=== PATIENT | male | born 1970 | race African-American/Black ===

== ENCOUNTER 2022-02-20 03:15 | Observation (INO) | payer BC, SELFPAY ==
[2022-02-20] VITALS (9 sets, daily range): BP systolic 103–120; BP diastolic 55–79; PULSE 82–88; RESP 14–19; TEMP 35.2–36.6; O2SAT 97–100; BMI 29.0
--- NOTE | 2022-02-20 03:17 | DI.CT.S_ITS ---
PROCEDURE: CT STROKE INDICATIONS: stroke symptoms, speech, weakness TECHNIQUE: Noncontrast 4.5 mm thick angled axial sections acquired from the foramen magnum to the vertex, with coronal reformats. For radiation dose reduction, the following was used: automated exposure control, adjustment of mA and/or kV according to patient size. COMPARISON: None. FINDINGS: Image quality: Excellent. CSF spaces: Basal cisterns are patent. No extra-axial fluid collections. The ventricles are symmetric in size and shape. Brain: No intracranial bleeds or masses. There is mild cerebral volume loss for age, with resultant ventricular and sulcal prominence. There are mild periventricular and deep white matter chronic small vessel ischemic changes. There is intracranial internal carotid artery atherosclerosis. Skull and face: Calvarium and visualized facial bones appear intact, without suspicious lesions. Sinuses: Visualized sinuses and mastoids are clear. IMPRESSION: 1. No acute intracranial abnormalities. No significant discrepancy with the material handler 1st shift radiology preliminary report. This study fulfills neurological imaging criteria for inclusion or exclusion of acute stroke therapies based on available published neurological guidelines. Dictated by: Gregorio Mary M.D. on 02/20/2022 at 7:37 Approved by: Gregorio Mary M.D. on 02/20/2022 at 7:38
--- NOTE | 2022-02-20 03:18 | DI.CT.S_ITS ---
PROCEDURE: CT ANGIO HEAD AND NECK INDICATIONS: stroke symptoms, speech, weakness TECHNIQUE: After the administration of intravenous contrast, 1 mm thick sections acquired from the aortic arch through the [place] of [place]. Post-contrast 4.5 mm thick sections then re-acquired from the foramen magnum to the vertex. 3-dimensional dkhoutd-aezpfjjmz-oddhpdvbiv (MIP) and/or volume rendering reformats were acquired of the central intracranial vasculature and neck separately. For radiation dose reduction, the following was used: automated exposure control, adjustment of mA and/or kV according to patient size. COMPARISON: [facility], CT, CT STROKE, 02/20/2022, 3:26. FINDINGS: Image quality: Excellent. BRAIN: CSF spaces: Ventricles are normal in size and shape. Basal cisterns are patent. No extra-axial fluid collections. Brain: No midline shift. Mild cerebral volume loss. No intracranial bleeds or masses. Mild periventricular white matter chronic small vessel ischemic changes are noted. No abnormal intracranial enhancement. Skull and face: Calvarium and facial bones appear intact, without suspicious lesions. Orbits appear normal. Sinuses: There is maxillary sinus mucosal thickening and mucous retention cyst bilaterally. The mastoids are clear. HEAD CT ANGIOGRAPHY: Anterior circulation: Calcified plaques at the cavernous segment of the internal carotid arteries bilaterally, left greater than right. Intracranial internal carotid arteries are normal in size and flow. The flow within the paired anterior cerebral arteries is normal and symmetric. The flow within the middle cerebral arteries is normal and symmetric. The anterior communicating artery is seen. No aneurysms are seen. Posterior circulation: Visualized portions of the vertebral arteries demonstrate normal caliber, and join to form a normal appearing basilar artery. Flow within the posterior cerebral arteries is normal and symmetric. No aneurysms are seen. NECK CT ANGIOGRAPHY: Carotid system: There is a common trunk for the left common carotid artery and innominate artery. The origins of the common carotid arteries appear patent. The common carotid arteries demonstrate normal caliber and courses. The bifurcation regions are both widely patent with mild calcified plaques. The internal carotid arteries demonstrate normal calibers and courses. Posterior circulation: The origins of the vertebral arteries both appear widely patent. The more superior extracranial portions of both vertebral arteries also demonstrate normal courses and calibers. They join to form a normal appearing basilar artery. Soft tissues: Visualized neck soft tissues demonstrate no suspicious abnormalities. Left thyroid lobe is absent, presumably surgically removed. Bones: No suspicious bony lesions. Degenerative changes in cervical spine. Visualized cervical spine appears normally aligned. IMPRESSION: 1. No acute intracranial abnormalities. 2. Bilateral maxillary sinus disease. 3. No high-grade stenosis or occlusion in anterior or posterior circulations. 4. No high-grade stenosis or occlusion in cervical carotid arteries or vertebral arteries bilaterally. No significant discrepancy with the operation shift supervisor radiology preliminary report. Any quantitative measurements of stenosis were performed using NASCET criteria. Dictated by: Gregorio Mary M.D. on 02/20/2022 at 7:39 Approved by: Gregoiro Mary M.D. on 02/20/2022 at 9:03
--- NOTE | 2022-02-20 03:18 | ED.NEUROSD ---
HPI - Neuro Symptoms/Deficit General Chief Complaint: Neuro Symptoms/Deficit Stated Complaint: stroke symptoms 30 mins Time Seen by Provider: 02/20/22 03:18 History of Present Illness HPI Narrative: 51-year-old male nonsmoker with extensive medical history including prior CO, AFib on Eliquis, diabetes presents by EMS for evaluation of stroke-like symptoms this morning. His last known normal was 12 30 and he awoke at about 2:00 a.m. with confusion, slurring of words, difficulty finding words and weakness. states that she thinks the left side of his face was a bit droopy. There is some questionable description of right-sided extremity weakness. Symptoms lasted about 30 minutes and had resolved prior to his arrival. He was diverted here by [facility] as Yolamarija miranda is on full diver. Though he technically no longer meets code stroke he is taken directly to the CT for evaluation. He denies any recent trauma or injury. He has no headache or blurred vision. He denies any chest pain or shortness of breath. Related Data Allergies Allergy/AdvReac Type Severity Reaction Status Date / Time metformin Allergy Rash Verified 02/20/22 03:40 lisinopril AdvReac Cough Verified 02/20/22 03:41 Review of Systems Review of Systems Narrative: GENERAL: Denies chills, fatigue, malaise, fever, sweats. HEENT: Denies sinus pain, ear pain, sore throat, difficulty swallowing, dizziness. RESPIRATORY: Denies dyspnea, cough, wheezing, hemoptysis, sputum. CARDIOVASCULAR: Denies chest pain, palpitations, orthopnea, edema, GASTROINTESTINAL: Denies nausea, vomiting, abdominal pain, diarrhea, constipation, melena. : Denies dysuria, frequency, incontinence, hematuria, urinary retention. MUSCULOSKELETAL: denies weakness, joint pain, or bony pain SKIN: Denies rash, skin lesions, or other NEUROLOGIC: See HPI PSYCHIATRIC: No concerning psychosocial issues. 12 point review of systems is negative except for those stated above Patient History Social History Smoking Status: Current every day smoker Exam Narrative Exam Narrative: GENERAL: [51] year old patient appears stated age. Well-developed patient, in mild distress. HEAD: Atraumatic. Normocephalic. EYES: Pupils equal round and reactive. Extraocular motions intact. No scleral icterus. No injection or drainage. ENT: Nose without bleeding, purulent drainage. Throat without erythema, tonsillar hypertrophy or exudate. Airway patent. NECK: Trachea midline. Non tender CARDIOVASCULAR: Regular rate and rhythm without murmurs, gallops, or rubs. RESPIRATORY: Clear to auscultation. Breath sounds equal bilaterally. No wheezes, rales, or rhonchi. GASTROINTESTINAL: Abdomen soft, non-tender, nondistended. EXTREMITIES: No edema or joint tenderness. BACK: Nontender without deformity or crepitance. No flank tenderness. NEURO: AOx3. SKIN: No rash or erythema of visible areas NIH Stroke Scale 1a. LOC: Patient is alert and keenly responsive (0) 1b. LOC Questions: Patient answers both LOC questions accurately (0) 1c. LOC Commands: Patient performs both tasks correctly (0) 2. Best Gaze: Normal (0) 3. Visual: No visual loss (0) 4. Facial palsy: Normal symmetrical movements (0) 5. Motor arm: No drift (0) 6. Motor leg: No drift (0) 7. Limb ataxia: Absent (0) 8. Sensory: Normal (0) 9. Best language: No aphasia; normal (0) 10. Dysarthria: Normal (0) 11. Extinction and inattention: No abnormality (0) NIHSS: 0 Initial Vital Signs Initial Vital Signs: Vital Signs Temperature 97.5 F L 02/20/22 03:15 Pulse Rate 82 02/20/22 03:15 Respiratory Rate 18 02/20/22 03:15 Blood Pressure 117/79 02/20/22 03:15 Pulse Oximetry 98 02/20/22 03:15 Oxygen Delivery Method 02/20/22 03:15 Course Orders Ordered: ED Orders 02/20/22 03:17 CT Stroke Stat Urine Drug Screen, Rapid Stat EKG-12 Lead Stat 02/20/22 03:18 CT angio head and neck Stat 02/20/22 03:19 Complete Blood Count AUTO DIFF Stat Comprehensive Metabolic Panel Stat Prothrombin Time INR Stat Troponin & CK Cardiac Panel Stat 02/20/22 03:45 COVID19 -Nasal RAPID/Pre-Proc Stat Sodium Chloride (Normal Saline 0.9%) 1,000 mls @ 150 mls/hr IV CONT BIANCA Last Admin: 02/20/22 03:59 Dose: 150 mls/hr Documented By: OW Vital Signs Vital signs: Vital Signs - 8 hr 02/20/22 03:15 Temperature 97.5 F L Pulse Rate 82 Respiratory Rate 18 Blood Pressure 117/79 Pulse Oximetry 98 Oxygen Delivery Method Room Air MDM - Neuro Symptoms/Deficit Lab Data Result diagrams: 02/20/22 03:19 02/20/22 03:19 Labs: Lab Results 02/20/22 02/20/22 02/20/22 Range/Units 03:19 03:19 03:19 WBC 8.1 (4.5-11.0) X10^3/uL RBC 4.36 L (4.5-5.9) X10^6/uL Hgb 13.9 (13.5-17.5) g/dL Hct 40.7 L (41-53) % MCV 93.1 (80-100) fL MCH 31.7 (26-34) PG MCHC 34.1 (30-36) % RDW 14.0 (11.6-14.8) % Plt Count 237 (150-400) X10^3/uL Neut % (Auto) 58.8 (50-75) % Lymph % (Auto) 29.2 (25-40) % [place] % (Auto) 8.0 (3-14) % Eos % (Auto) 3.2 (2-4) % Baso % (Auto) 0.8 (0-2) % Neut # (Auto) 4800 (0979-2269) /uL Lymph # (Auto) 2400 (2601-0000) /uL [place] # (Auto) 600 (0-900) /uL Eos # (Auto) 300 (0-450) /uL Baso # (Auto) 100 (0-100) /uL PT 15.1 H (10.1-12.7) SECONDS INR 1.3 (0.9-1.3) Sodium 134 L (137-145) mmol/L Potassium 3.8 (3.4-5.1) mmol/L Chloride 101 (98-107) mmol/L Carbon Dioxide 22 (22-32) mmol/L BUN 17 (9-20) mg/dL Creatinine 1.28 H (0.66-1.25) mg/dL Estimated GFR > 60 (>60) mL/min BUN/Creatinine Ratio 13.3 (6-22) Glucose 164 H (70-100) mg/dL Calcium 9.4 (8.4-10.2) mg/dL Total Bilirubin 0.4 (0.2-1.3) mg/dL AST 26 (17-59) IU/L ALT 23 (<50) IU/L Alkaline Phosphatase 59 (38-126) U/L Total Creatine Kinase 152 (55-170) U/L CK-MB (CK-2) 1.30 (<2.37) ng/mL CK-MB (CK-2) Rel Index 0.9 L (1.5-5.0) % Troponin I < 0.012 (0.01-0.034) ng/mL Total Protein 7.5 (6.3-8.2) g/dL Albumin 3.9 (3.5-5.0) g/dL Globulin 3.6 (1.7-4.1) g/dL Albumin/Globulin Ratio 1.1 (1.0-2.8) SARS-CoV-2 (PCR) (Negative) 02/20/22 Range/Units 03:45 WBC (4.5-11.0) X10^3/uL RBC (4.5-5.9) X10^6/uL Hgb (13.5-17.5) g/dL Hct (41-53) % MCV (80-100) fL MCH (26-34) PG MCHC (30-36) % RDW (11.6-14.8) % Plt Count (150-400) X10^3/uL Neut % (Auto) (50-75) % Lymph % (Auto) (25-40) % [place] % (Auto) (3-14) % Eos % (Auto) (2-4) % Baso % (Auto) (0-2) % Neut # (Auto) (1923-4708) /uL Lymph # (Auto) (4692-0260) /uL [place] # (Auto) (0-900) /uL Eos # (Auto) (0-450) /uL Baso # (Auto) (0-100) /uL PT (10.1-12.7) SECONDS INR (0.9-1.3) Sodium (137-145) mmol/L Potassium (3.4-5.1) mmol/L Chloride (98-107) mmol/L Carbon Dioxide (22-32) mmol/L BUN (9-20) mg/dL Creatinine (0.66-1.25) mg/dL Estimated GFR (>60) mL/min BUN/Creatinine Ratio (6-22) Glucose (70-100) mg/dL Calcium (8.4-10.2) mg/dL Total Bilirubin (0.2-1.3) mg/dL AST (17-59) IU/L ALT (<50) IU/L Alkaline Phosphatase (38-126) U/L Total Creatine Kinase (55-170) U/L CK-MB (CK-2) (<2.37) ng/mL CK-MB (CK-2) Rel Index (1.5-5.0) % Troponin I (0.01-0.034) ng/mL Total Protein (6.3-8.2) g/dL Albumin (3.5-5.0) g/dL Globulin (1.7-4.1) g/dL Albumin/Globulin Ratio (1.0-2.8) SARS-CoV-2 (PCR) Negative (Negative) Point of Care Testing Glucose POC [address] scan - head: Radiologist's Impression: No definite acute intracranial CT abnormality CTA - brain/neck: Radiologist's Impression: [address] [address] XRay Report Signed Patient: Zoie Bailon MR#: [id number] : 06/05/1973 Acct:[id number] Age/Sex: 48 / F Date of Service: 02/19/22 Loc: ED Accession Number: [id number] ?? Procedure: XR elbow LT min 3V Ordering Provider: Oscar Burrell D.O. PROCEDURE:? XR ELBOW LT MIN 3V ? INDICATIONS:? fall with wrist injury ? TECHNIQUE:? 3 views of the elbow were acquired.? ? COMPARISON:? None. ? FINDINGS:? ? Bones:? No fractures or dislocations.? No suspicious bony lesions.? ? Soft tissues:? No elbow joint effusion.? No suspicious soft tissue calcifications.? ? ? IMPRESSION:? ? 1. No fracture or dislocation. ? ? Dictated by: Mundo Keen M.D. on 02/19/2022 at 22:37 ? ? Approved by: Mundo Keen M.D. on 02/19/2022 at 22:38 ? MDM Narrative Medical decision making narrative: Patient went to bed in his normal state of health and was awoken at about 2:00 a.m. with a discomfort in his neck accompanied by neurologic symptoms including confusion, difficulty finding words, slurred speech and left-sided facial weakness with the possibility one-sided lower extremity weakness, his story is a bit vague. Imaging is unremarkable and NIH stroke scale department is 0. Patient requires hospitalization for further evaluation and characterization of his symptoms including MRI and likely echocardiogram. Patient understands and agrees with the diagnosis and plan, hospitalist happy to accept Discharge Plan Departure Patient Disposition: Admitted as Observation Clinical Impression: Transient cerebral ischemia Admit Date/Time: 02/20/22 04:15
[2022-02-20 03:29] LABS: Add Manual Diff / Slide Review NO; Basophils Absolute Auto 100 /uL (0-100); Basophils Percent Auto 0.8 % (0-2); Eosinophils Absolute Auto 300 /uL (0-450); Eosinophils Percent Auto 3.2 % (2-4); Hematocrit 40.7 % (41-53); Hemoglobin 13.9 g/dL (13.5-17.5); Lymphocytes Absolute Auto 2400 /uL (1100-4500); Lymphocytes Percent Auto 29.2 % (25-40); Mean Corpuscular HGB Conc 34.1 % (30-36); Mean Corpuscular Hemoglobin 31.7 PG (26-34); Mean Corpuscular Volume 93.1 fL (80-100); Monocytes Absolute Auto 600 /uL (0-900); Neutrophils Absolute Auto 4800 /uL (1500-7000); Neutrophils Percent Auto 58.8 % (50-75); Platelet Count 237 X10^3/uL (150-400); Red Blood Cell Count 4.36 X10^6/uL (4.5-5.9); White Blood Cell Count 8.1 X10^3/uL (4.5-11.0)
[2022-02-20 03:38] LABS: INR 1.3 (0.9-1.3); Prothrombin Time 15.1 SECONDS (10.1-12.7)
[2022-02-20 03:43] LABS: Alanine Aminotransferase 23 IU/L (<50); Albumin 3.9 g/dL (3.5-5.0); Albumin Globulin Ratio 1.1 (1.0-2.8); Alkaline Phosphatase 59 U/L (38-126); Aspartate Aminotransferase 26 IU/L (17-59); BUN Creatinine Ratio 13.3 (6-22); Bilirubin Total 0.4 mg/dL (0.2-1.3); Blood Urea Nitrogen 17 mg/dL (9-20); Calcium 9.4 mg/dL (8.4-10.2); Carbon Dioxide 22 mmol/L (22-32); Chloride 101 mmol/L (98-107); Creatine Kinase 152 U/L (55-170); Estimated Glomerular Filt Rate > 60 mL/min (>60); Globulin 3.6 g/dL (1.7-4.1); Glucose 164 mg/dL (70-100); HEMOLYSIS < 15 (0-50); Potassium 3.8 mmol/L (3.4-5.1); Sodium 134 mmol/L (137-145); Total Protein 7.5 g/dL (6.3-8.2)
[2022-02-20 03:55] LABS: Troponin I < 0.012 ng/mL (0.01-0.034)
[2022-02-20 03:58] LABS: CKMB % Relative Index 0.9 % (1.5-5.0)
[2022-02-20] MEDS: SODIUM CHLORIDE 0.9% 1,000 ML 150 ML IV (03:59)
[2022-02-20 04:01] LABS: COVID19 -Nasal RAPID Negative (Negative)
--- NOTE | 2022-02-20 04:42 | DI.MRI.S_ITS ---
PROCEDURE: MR HEAD/BRAIN WO CON INDICATIONS: TIA TECHNIQUE: Noncontrast axial T1 spin echo, axial T2 fast spin echo, sagittal and axial FLAIR, coronal T2 fast spin echo, axial gradient echo, axial diffusion and ADC through the brain. COMPARISON: None. FINDINGS: Image quality: Excellent. CSF Spaces: Basal cisterns are patent. No extra-axial fluid collections. Ventricles are normal in size and shape. Brain: No intracranial masses or hemorrhage. Cee/white matter interface is normal. Brainstem appears normal. Mild diffuse cerebral volume loss is present. Minimal patchy high FLAIR signal within the periventricular and subcortical white matter is present. Diffusion-weighted images demonstrate no acute ischemic insult. No chronic ischemic insults. Normal intravascular flow voids are present. Skull and face: Calvarium has normal marrow signal. Orbits appear normal. Sinuses: There is mild mucosal thickening within the bilateral maxillary, frontal, ethmoid, and sphenoid sinuses. Sinuses and mastoids are otherwise clear. IMPRESSION: 1. No acute process. No recent infarct. 2. Mild volume loss. Minimal small vessel ischemic disease. Dictated by: Sita Brar M.D. on 02/20/2022 at 8:52 Approved by: Sita Brar M.D. on 02/20/2022 at 8:53
--- NOTE | 2022-02-20 04:45 | DI.ECHO.S_ITS ---
[facility]---------+ [facility] +---------+ : : [address] [place] : : : : [id number] : : : : Phone: [phone]+ Echocardiogram Report + + :Name: DAIJA GENTILE Study Date: 02/20/2022 Height: 70 in : :[facility] ReadingLocation: Weight: 202 lb : : Gender: Male BSA: 2.1 m2 : :: 1970 Age: 51 yrs BP: 112/65 mmHg: :Reason For Study: TIA : :Ordering Physician: MASTER, : :DON Performed By: Alejandro Parker : :Referring: DON THAO : + + Interpretation Summary The left ventricle is normal in size. Left ventricular systolic function is normal. The ejection fraction is estimated to be 60-65%. There are no focal wall motion abnormalities. Diastolic parameters suggest a relaxation abnormality of the left ventricle, consistent with probable normal filling pressures. The right ventricle is normal in size and function. Pulmonary artery pressures cannot be estimated because of the lack of a measurable TR jet velocity. Both atria are normal in size. The interatrial septum grossly appears intact with no obvious evidence for an atrial septal defect. Injection of contrast documented no interatrial shunt. The aortic root is normal size. A bicuspid aortic valve cannot be excluded. There is mild aortic valve sclerosis. There is no aortic stenosis. Procedure: A two-dimensional transthoracic echocardiogram with color flow and Doppler was performed. The study quality was technically adequate. There is no prior echocardiogram noted for this patient. A saline contrast injection was performed to assess for cardiac shunting. The patient was in normal sinus rhythm during the exam. Left Ventricle: The left ventricle is normal in size. Left ventricular wall thickness is mildly increased. Left ventricular systolic function is normal. The ejection fraction is estimated to be 60-65%. There are no focal wall motion abnormalities. Diastolic parameters suggest a relaxation abnormality of the left ventricle, consistent with probable normal filling pressures. Right Ventricle: The right ventricle is normal in size and function. Atria: Both atria are normal in size. The interatrial septum grossly appears intact with no obvious evidence for an atrial septal defect. Injection of contrast documented no interatrial shunt. Mitral Valve: The mitral valve is normal in structure and function. There is trace mitral regurgitation. Aortic Valve: There is mild aortic valve sclerosis. A bicuspid aortic valve cannot be excluded. There is no aortic stenosis. No aortic regurgitation is present. Tricuspid Valve: The tricuspid valve is normal in structure and function. No tricuspid regurgitation. Pulmonary artery pressures cannot be estimated because of the lack of a measurable TR jet velocity. Pulmonic Valve: The pulmonic valve is not well seen, but is grossly normal. There is no pulmonic valvular regurgitation. There is no significant valvular heart disease. Great Vessels: The aortic root is normal size. The dimensions of the ascending aorta are normal. The IVC is of normal diameter and collapses greater than 50% with a sniff. This suggests a low right atrial pressure of 3 mm Hg. Pericardium/ Pleura There is no pericardial effusion. There is no pleural effusion. MMode/2D Measurements & Calculations LVIDd: 3.6 cm LVOT diam: 2.2 cm LVIDs: 2.5 cm Ao root diam: 2.9 cm FS: 29.6 % asc Aorta Diam: 3.0 cm IVSd: 1.3 cm LVPWd: 1.4 cm LV pacheco. diameter/BSA (cm/m^2): 1.7 LV sys. diameter/BSA (cm/m^2): 1.2 LA A2 area: 16.7 cm2 RA long axis: 5.4 cm LA A4 area: 16.6 cm2 RA area: 11.7 cm2 LA length (vol): 5.5 cm RA vol: 21.7 ml LA vol: 42.7 ml RA : 10.3 ml/m2 LA vol index: 20.4 ml/m2 TAPSE: 2.0 cm Doppler Measurements & Calculations Ao V2 max: 157.7 cm/sec LVOT Max Isidro: 104.6 cm/sec Ao V2 mean: 116.3 cm/sec LV V1 max P.4 mmHg Ao max P.9 mmHg LV V1 VTI: 18.4 cm Ao mean P.9 mmHg KATIE(I,D): 2.7 cm2 Ao V2 VTI: 26.6 cm KATIE(V,D): 2.6 cm2 sev ratio: 0.69 KATIE indexed to BSA (cm^2/m^2): 1.3 MV E max isidro: 64.0 cm/sec SV(LVOT): 72.9 ml MV A max isidro: 82.8 cm/sec MV E/A: 0.77 Med Peak E' Isidro: 7.0 cm/sec E/E' med: 9.1 Lat Peak E' Isidro: 7.1 cm/sec E/E' lat: 9.0 E/e' average: 9.1 MV dec time: 0.30 sec Reading Physician:01:22 PM
--- NOTE | 2022-02-20 04:59 | P.HP_ITS ---
History of Present Illness History of Present Illness Chief complaint: stroke symptoms 30 mins Narrative: Daljit Diaz is a 51-year-old male with a history of prior VT stent x1, paroxysmal AFib on Eliquis, type 2 diabetes on Victoza/Jardiance, depression, ischemic cardiomyopathy, coronary artery disease, hypertension, hyperlipidemia, severe GERD, overweight, daily tobacco and alcohol use who presented to the ED for reported stroke-like symptoms this morning.? His last known normal was 1230am when he went to bed awoke at about 2:00 a.m. with confusion, slurring of words, word-finding difficulty, and weakness. Patients reported possible left side facial droop and right-sided extremity weakness.? Symptoms lasted about 30 minutes and had resolved at home prior to EMS arrival to their home, and were not present on admittance to the ED.?He had been diverted to [place] by [facility] as [facility] was on diversion. Upon arrival he did not meet code stroke criteria. He denies any recent trauma, injury, headache, blurred vision, chest pain, shortness of breath, uri illness or symptoms, difficulty with balance or coordination, difficulty swallowing, abdominal pain, nausea, vomiting, diarrhea, fever, body aches, chills, urinary symptoms, bowel symptoms, or history of stroke or TIA. Patient does report that he has a significant history for severe GERD and frequently suffers from a type of burning radiating down epigastric pain midsternal, that frequently wakes him at night. He has been offered surgical intervention for esophageal sphincter dysfunction, he continues to manage with medication but notes that he has missed his medication frequently in the past 3 weeks he also had a large meal approximately 8:00 p.m. last night of collar greens with hot sauce, ribs and forgot to take his medication prior to eating. The patient smokes a ppd x 13 years and drinks 3-4 coores beers daily. The patient had been on Plavix and Eliquis, his picture painter stopped the Plavix approximately 2 months ago and doubled his losartan dose from 50 mg to 100 mg daily. Patient states that his atrial fibrillation presents with symptomatic lightheadedness slurred speech confusion, and weakness frequently. He had a stress test approximately 3 weeks ago, he notes his last echo was over a year ago. His picture painter is at [facility]. Patient's vital signs have remained stable upon admit temp 97.5?, BP 117/79, HR 82, R 18, O2 saturation 98% on room air. Patient's CBC is predominantly unr emarkable, CMP demonstrates a sodium 134, creatinine 1.28 glucose 164, PT is 15.1 but INR is normal at 1.3, initial troponin is negative, NIH score:0 head neck CTA was negative for any acute processes, brain CT negative for any acute intracranial processes. EKG I personally reviewed normal sinus rhythm with a rate of 84, nonspecific ST/T-wave abnormalities, prolonged QT 412. No comparison labs, diagnostics or EKG available in chart. Patient is resting comfortably in the room, although he continues to have GERD symptoms of midsternal radiating burning pain. Patient remains asymptomatic at this time. Patient admitted for TIA stroke rule out. Patient History Medical History (Updated 02/20/22 @ 06:06 by MAXIMILIAN Gayle-CONRADO) Alcohol use CAD (coronary artery disease), sun'aq coronary artery Chest pain due to GERD Essential hypertension 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 coronary artery disease Hypertriglyceridemia Ischemic cardiomyopathy Paroxysmal A-fib Tobacco abuse Type 2 diabetes mellitus Surgical History (Updated 02/20/22 @ 06:06 by MAXIMILIAN Gayle-CONRADO) History of coronary artery stent placement Family & Social History Family History Mother Seizure disorder Cancer Father Hypertension Diabetes mellitus Congestive heart failure Social History: household members ,children, is a long term care social worker Prior Living Arrangements House Safety & Behavioral: Feels Safe in Current Yes Environment Been Physically Hurt or No Threatened By a Person Tobacco & Substance use: Smoking Status Current every day smoker x 13 years Smoking packs per day 1 alcohol intake current alcohol intake frequency 3 or more drinks per day Substance Use Type does not use Meds Home Medications and Allergies Home Medications Medication Instructions Recorded Confirmed Type apixaban 5 mg tablet (Eliquis) 5 mg PO BID 02/20/22 02/20/22 History atorvastatin 80 mg tablet 80 mg PO DAILY 02/20/22 02/20/22 History carvedilol 25 mg tablet 12.5 mg PO BID 02/20/22 02/20/22 History empagliflozin 25 mg tablet 25 mg PO DAILY 02/20/22 02/20/22 History escitalopram oxalate 10 mg tablet 10 mg PO DAILY 02/20/22 02/20/22 History ezetimibe 10 mg tablet 10 mg PO DAILY 02/20/22 02/20/22 History fluticasone propionate 50 1 spray intranasal DAILY PRN 02/20/22 02/20/22 History mcg/actuation nasal Allergy Symptoms spray,suspension liraglutide 0.6 mg/0.1 mL (18 mg/3 1.8 mg SUBCUT DAILY 02/20/22 02/20/22 History mL) subcutaneous pen injector (Victoza 2-Molina) losartan 50 mg tablet 100 mg PO DAILY 02/20/22 02/20/22 History nitroglycerin 0.4 mg sublingual 0.4 mg sublingual Q5-15M PRN Chest 02/20/22 02/20/22 History tablet Pain omeprazole 20 mg tablet,delayed 20 mg PO DAILY 02/20/22 02/20/22 History release spironolactone 25 mg tablet 12.5 mg PO DAILY 02/20/22 02/20/22 History trazodone 50 mg tablet 50 mg PO BID 02/20/22 02/20/22 History Allergies Allergy/AdvReac Type Severity Reaction Status Date / Time metformin Allergy Rash Verified 02/20/22 03:40 lisinopril AdvReac Cough Verified 02/20/22 03:41 Review of Systems Review of Systems Narrative: All 12 point systems reviewed with the patient and are negative except otherwise documented. Exam Vital Signs (past 8 hours): - 02/20/22 03:15 02/20/22 04:12 02/20/22 04:30 Temperature 97.5 F L Pulse Rate 82 84 84 Respiratory Rate 18 14 14 Blood Pressure 117/79 108/67 103/67 Pulse Oximetry 98 97 97 Oxygen Delivery Method Room Air Room Air Room Air 02/20/22 04:58 Temperature 95.4 F L Pulse Rate 85 Respiratory Rate 19 Blood Pressure 112/65 Pulse Oximetry 99 Oxygen Delivery Method Oxygen Delivery Method Room Air Narrative Exam Narrative: General: Patient is a well-developed, well-nourished delightful 51 yr old male in no distress at this time. HEENT: Normocephalic, atraumatic, extraocular muscles intact, oral pharynx is clear and mucous membranes are moist. Neck is supple and symmetric, trachea is midline, no adenopathy, no thyroid enlargement, nontender, no masses palpated. Negative for JVD Chest: Normal AP diameter and contour without kyphoscoliosis, no nasal flaring, retractions, or tachypneic labored Lungs: Auscultation of all lung hancock are clear without adventitious sounds, wheezes, rhonchi, or rales. Cardio: regular rate and rhythm without murmur, rubs, or gallops, no carotid bruit, no cardiac pulsations present. Abdomen: Soft nontender, negative for organomegaly, or masses. Bowel sounds are present in all 4 quadrants without guarding or rebound, no CVA tenderness. Musculoskeletal: Muscle strength and tone are equal within normal limits, no deformity, crepitus, effusions, cyanosis, clubbing or edema present. Full range of motion intact radial and pedal pulses are normal. Skin: Warm dry and intact without rashes, ulcerations or petechiae. Neuro: Alert and orientated x3, strength is +5/5 in all extremities, sensation to touch intact, no gross deficits noted of cranial nerves.NIH:0 Psych: Patient has a well-kept appearance, appropriate affect, mental status attitude thought context and judgment are appropriate for age. Objective Labs Result Diagrams: 02/20/22 03:19 02/20/22 03:19 Labs: Laboratory Results - last 24 hr 02/20/22 02/20/22 02/20/22 03:19 03:19 03:19 WBC 8.1 RBC 4.36 L Hgb 13.9 Hct 40.7 L MCV 93.1 MCH 31.7 MCHC 34.1 RDW 14.0 Plt Count 237 Neut % (Auto) 58.8 Lymph % (Auto) 29.2 [place] % (Auto) 8.0 Eos % (Auto) 3.2 Baso % (Auto) 0.8 Neut # (Auto) 4800 Lymph # (Auto) 2400 [place] # (Auto) 600 Eos # (Auto) 300 Baso # (Auto) 100 PT 15.1 H INR 1.3 Sodium 134 L Potassium 3.8 Chloride 101 Carbon Dioxide 22 BUN 17 Creatinine 1.28 H Estimated GFR > 60 BUN/Creatinine Ratio 13.3 Glucose 164 H Calcium 9.4 Total Bilirubin 0.4 AST 26 ALT 23 Alkaline Phosphatase 59 Total Creatine Kinase 152 CK-MB (CK-2) 1.30 CK-MB (CK-2) Rel Index 0.9 L Troponin I < 0.012 Total Protein 7.5 Albumin 3.9 Globulin 3.6 Albumin/Globulin Ratio 1.1 SARS-CoV-2 (PCR) 02/20/22 03:45 WBC RBC Hgb Hct MCV MCH MCHC RDW Plt Count Neut % (Auto) Lymph % (Auto) [place] % (Auto) Eos % (Auto) Baso % (Auto) Neut # (Auto) Lymph # (Auto) [place] # (Auto) Eos # (Auto) Baso # (Auto) PT INR Sodium Potassium Chloride Carbon Dioxide BUN Creatinine Estimated GFR BUN/Creatinine Ratio Glucose Calcium Total Bilirubin AST ALT Alkaline Phosphatase Total Creatine Kinase CK-MB (CK-2) CK-MB (CK-2) Rel Index Troponin I Total Protein Albumin Globulin Albumin/Globulin Ratio SARS-CoV-2 (PCR) Negative Assessment & Plan Assessment & Plan narrative: Daljit Diaz is a 51-year-old male with a history of prior VT stent x1, paroxysmal AFib on Eliquis, type 2 diabetes on Victoza, coronary artery disease, ischemic cardiomyopathy, hypertension, hyperlipidemia, severe GERD, overweight, daily tobacco and alcohol use who presented to the ED for reported stroke-like symptoms, and admitted for TIA stroke rule out. 1. TIA (slurred speech, word-finding difficulty, weakness), acute, present on admission-Resolved -suspect true TIA, with exacerbation from atrial fibrillation and GERD. Patient's risk factors include , daily tobacco use, alcohol intake, history of VT with stent placement, ischemic cardiomyopathy, hypertension, hyperlipidemia, type 2 diabetes, atrial fibrillation, coronary artery disease, and over weight. -MRI /Echo ordered -Continue eliquis, Cardiology recently stopped Plavix will not restart unless MRI is positive for stroke. -continue patient's Lipitor and Zetia -ordered lipid panel, BNP -providing counseling regarding tobacco cessation, and reducing alcohol intake. -PT/OT evaluation 2. GERD, acute exacerbation, present on admission -patient notes that he has missed medication dosages frequently over the past 3 weeks. -Is followed by a GI- and has had a EGD & Colon within the past year. -order GI cocktail, IV Protonix 20 mg b.i.d. -holding patient's omeprazole 3. LEEANNA, acute, present on admission -patient denied any history of CKD, for based on medical history suspect this is CKD over LEEANNA. -patient's Jardiance and or Victoza may be contributing to elevated creatinine. -Recommend follow up for evaluation by PCP -NS @80cc/hr -Holding Spirolactone 4. Paroxysmal atrial fibrillation, chronic, present on admission -patient's EKG demonstrated normal sinus rhythm -patient placed on tele monitor -continue Eliquis 5. Type 2 diabetes [id number] with hypertriglyceridemia, acute on chronic, uncontrolled, present on admission -ordered A1c, lipid panel -patient admitted under diabetic protocol, glucose checks ACHS, on low-dose sliding scale. -continue patient's Jardiance and Victoza 6. Coronary artery disease of the sun'aq artery, ischemic cardiomyopathy, and history of VT with stent x1, chronic, present on admission -managed by Cardiology 7. Essential hypertension, chronic, present on admission -continue losartan, carvedilol, holding spirolactone due to LEEANNA. 8. Depression, chronic, present on admission -continue Lexapro and trazodone 9. Overweight as evidence by BMI of 28.6, acute on chronic, present on admission -dietary consult placed for counseling and recommendations regarding diet, lifestyle modification and weight loss. Code status:Full Surrogate decision maker: Dena NGO PCR:Negative DVT/VTE prophylaxis:pt on eliquis SCD's only Disposition: Patient admitted for observation to complete MRI and echo rule out stroke, expected length of stay less than 3 midnights. I have utilized all available immediate resources to obtain, update, or review the patient's current medications. I confirmed that the patient's advanced care plan is present, Code status is documented and/or surrogate decision maker is listed in the patient's medical record. Time Spent With Patient Critical Care time: I spent a total of [] minutes of critical care time on this patient's care today; this time is exclusive of procedural time. Quality VTE Deep Vein Thrombosis/Pulmonary Embolism Present on Admission: No
[2022-02-20 05:05] LABS: Hemoglobin A1C% w Est Avg Glu 6.6 % (4.0-6.0)
[2022-02-20 05:12] LABS: Cholesterol 134 mg/dL (140-199); HDL Cholesterol 28 mg/dL (40-60); LDL Cholesterol Calculated 74 mg/dL (<100); Triglycerides 159 mg/dL (35-150)
[2022-02-20 05:13] LABS: Magnesium 1.7 mg/dL (1.6-2.3)
[2022-02-20 05:20] LABS: NT-proBNP (BNP-Adult 18+) 20 pg/mL (<125)
[2022-02-20] MEDS: MAG HYDROX/ALUMINUM/SIMETH SUS 20 ML, LIDOCAINE VISCOUS 2% 15 ML PO (05:46)
--- NOTE | 2022-02-20 08:51 | DIET.CONS ---
Addendum entered by Luz Samayoa 02/20/22 09:17: yes Addendum entered by Medina Kinsey 02/20/22 09:15: Note written by RD grad intern, RD agrees with pt assessment, diagnosis and intervention plan. Luz Samayoa, MS RD Original Note: Dietary Consultation Note Admission Date: 02/20/2022 04:15 Assessment: Pt is a 51yo M admitted for TIA r/t seen for dietary for BMI 29 and DM dx. Pt hx includes DC and GERD. Pt A1c of 6.6, which pt was happy to hear was under 7. Pt does not test BG regularly, admitting to testing around dr visits only. [facility] pt test BG levels at least first thing in the morning and after large or atypical, if not consistently throughout the day, in order to better understand the range of his BG levels throughout the day. Pt reports cooking has been a challenge for the past 2y due to home remodel. Pt reports sufficient food storage at home, just not sufficient food production space. Pt reports kitchen remodel should be completed within 4 mo. Currently, pt follows the following dietary schedule: wake 9 am B at 11 am: dinner leftovers, breakfast muffins, or no food L at 4 pm: sandwich or dinner leftovers D at 7 pm: packaged foods or take out of [place] food, Pakistani food, [employer] - mainly noodles or rice dished with protein and some vegetables. No snacks reported Pt reports focusing on protein and reports fiber intake is low with minimum vegetable intake. [facility] pt focus meals to be 1 c of CHO, have protein with every meal, and increase vegetable intake. Based on current living situation, [facility] pt purchase frozen vegetables with no added ingredients and add these to meals. Pt understands MNT for GERD, knows he should not have had his large, spicy meal late at night. Ht: 177.8 cm Wt: 90.5 kg BMI: 29.0 Last BM: 02/20/22 (02/20/22 04:50) MNA: 14 Davide Score: 23 Diet: 02/20/22 Breakfast Carbohydrate Consistent Diet Diet Modifications: Carbohydrate level: Small (2 CHO) Bedtime snack: Yes Labs: RBC 4.36 X10^6/uL (4.5-5.9) L 02/20/22 03:19 Hgb 13.9 g/dL (13.5-17.5) 02/20/22 03:19 Hct 40.7 % (41-53) L 02/20/22 03:19 Creatinine 1.28 mg/dL (0.66-1.25) H 02/20/22 03:19 Hemoglobin A1c 6.6 % (4.0-6.0) H 02/20/22 03:19 NT-Pro-B Natriuret Pep 20 pg/mL (<125) 02/20/22 03:19 Nutrition Diagnosis: Impaired ability to prepare foods r/t barriers due to home remodel aeb pt reliant on frozen foods and resistant to cook from scratch due to living in . Interventions: To support BG health, recc pt test BG on a more consistent basis, eat protein with every meal, and add vegetables to every meal. EER: 2.300-2.750 kcal (25-30 kcal/kg), 73-92 g PRO (0.8-1.0 g PRO/kg) Electronically Signed by: Medina Kinsey 02/20/22 08:51 [address] [address]
[2022-02-20] MEDS: PANTOPRAZOLE 40 MG VIAL 20 MG IV (09:56)
[2022-02-20] MEDS: ATORVASTATIN 20 MG TABLET 80 MG PO (09:57)
[2022-02-20] MEDS: APIXABAN 5 MG TABLET PO (09:57)
[2022-02-20] MEDS: carvediloL 12.5 MG TABLET PO (09:57)
[2022-02-20] MEDS: ESCITALOPRAM 10 MG TABLET PO (09:57)
[2022-02-20] MEDS: EZETIMIBE 10 MG TABLET PO (09:59)
--- NOTE | 2022-02-20 11:20 | PT.IIE ---
Surgical History (Last Updated 02/20/22 @ 06:06 by Modesta Ojeda [facility]) History of coronary artery stent placement Medical History (Last Updated 02/20/22 @ 06:06 by Modesta Ojeda [facility]) Alcohol use CAD (coronary artery disease), platinum coronary artery Chest pain due to GERD Essential hypertension 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 coronary artery disease Hypertriglyceridemia Ischemic cardiomyopathy Paroxysmal A-fib Tobacco abuse Type 2 diabetes mellitus Physical Therapy Inpatient Evaluation/Re-Eval M1 PT/OT-IP Prior Functional Status Start: 02/20/22 11:55 Freq: NEEDED Status: Active Protocol: Document 02/20/22 11:20 AB (Rec: 02/20/22 12:03 AB [id number]) Medical Review Prior Functional Status Medical History Reviewed Yes Communication able to make needs known Mobility and Gait pt stated that he is independent with all mobilities and ambulation without AD Social History Household Members significant other,children Living Arrangements House Number of Floors (Floors) Two Floors Number of Stairs To Enter/Railing? 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 PT-IP Current Condition Start: 02/20/22 11:55 Freq: NEEDED Status: Active Protocol: Document 02/20/22 11:20 AB (Rec: 02/20/22 12:03 AB [email or web address]) Physical Therapy Current Condition Current Condition Evaluation Date 02/20/22 Treatment Diagnosis TIA; difficulty in walkinig Onset Date 02/20/22 M3 PT-IP Subjective Start: 02/20/22 11:55 Freq: NEEDED Status: Active Protocol: Document 02/20/22 11:20 AB (Rec: 02/20/22 12:03 AB [email or web address]) Subjective Physical Therapy Visit Type Type Initial Evaluation Visit Start Time 11:20 Visit Stop Time 11:35 Total Visit Minutes 15 Number of POTATO LOADER Visits 0 Physical Therapy Visit Comments Patient Comments agreeable to do PT Therapy Pain Assessment Pain Present Pain Present Denied Pain M4 PT-IP Mobility and Gait Start: 02/20/22 11:55 Freq: NEEDED Status: Active Protocol: Document 02/20/22 11:20 AB (Rec: 02/20/22 12:03 AB [email or web address]) PT-Bed Mobility Assessment Supine to Sit Supine to Sit Independent Sit to Supine Sit to Supine Independent PT-Transfer Assessment Sit to and From Stand Sit to and from Stand Independent Comments Mobility Comments BP: 130/80 KS: 91 supine in bed completed supine to sit independent. sit to stand independent and ambulated in room without AD SBA. presents with antalgic gait, increase RLE ER and bilateral flat footed. pt agreed to walk in the hallway and completed ~ 250 ft without AD SBA without LOB. completed up/down steps using R rail ascending SBA. ambulated back to his room and back to bed. call light and table placed within reach. informed pt that no further PT is needed and pt agreed. stated that he feels that he is back to his PLOF Gait Assessment Gait Gait Assistance Required: Standby Assistance,1 Person Assist Distance (Feet) 250 Able to Maintain Weight Bearing Status Yes During Gait Assistive Devices Assistive Device None Orthotic/Prosthetic Devices or Brace: No Gait Deviations General Gait Pattern Antalgic Stair Climbing Assessment Evaluation Level of Assist On Stairs Standby Assistance Devices Stair Climbing Assistive Devices Right Railing Technique/Endurance Stair Climbing Direction Ascend and Descend Stair Climbing Technique Step Over Step Number of Steps Climbed 3 Query Text: Stair Climbing Set # Repetitions (reps) 2 PT-Balance Assessment Sitting Balance and Reactions Static Sitting Balance Ability Normal Dynamic Sitting Balance Ability Normal Standing Balance and Reactions Static Standing Balance Ability Normal Dynamic Standing Balance Ability Good Device Used without AD M5 PT-IP Objective Assessments Start: 02/20/22 11:55 Freq: NEEDED Status: Active Protocol: Document 02/20/22 11:20 AB (Rec: 02/20/22 12:03 AB [email or web address]) Orientation Orientation/Cognition Level of Alertness Alert Orientation Name,Age,Birthday,Month,Date, Year,Day of Week,Place, Situation Language Function Ability No Deficits Noted Safety Awareness Understands Safety Issues Gross Range of Motion Lower Extremity ROM Assessment Within Functional Limits Strength Lower Extremity Strength Assessment Within Functional Limits Coordination Assessment Gross Coordination Gross Coordination WNL Sensation Assessment Sensation Gross Sensation WNL Muscle Tone Muscle Tone WNL Yes M6 PT-IP Treatment Start: 02/20/22 11:55 Freq: NEEDED Status: Active Protocol: Document 02/20/22 11:20 AB (Rec: 02/20/22 12:03 AB [id number]) Physical Therapy Treatment Education Education Provided Safety M7 PT-IP Assessment and Plan Start: 02/20/22 11:55 Freq: NEEDED Status: Active Protocol: Document 02/20/22 11:20 AB (Rec: 02/20/22 12:03 [id number]) PT Summary Assessment and Plan Potential Rehabilitation Potential Fair Status of Condition at Evaluation Stable Summary Assessment Summary PT eval completed and no further PT intervention indicated at this time. SBA provided only for safety but can be independent in his room . pt plans to go home and spouse to assist at needed. Frequency of Treatment Frequency Of Treatment Discharge Discharge Recommendations PT Discharge Recommendations Home Transportation Needs at Discharge Private Vehicle
--- NOTE | 2022-02-20 11:46 | CM.DANOTE ---
Initial DCP Assessment Note Pt is a 51 yo male, arrives from [facility] (on divert) with 30 min of stroke like sx, admitted for TIA/stroke r/o Patient w/significant risk factors that include: history of prior NM stent x1, paroxysmal AFib on Eliquis, type 2 diabetes on Victoza/Jardiance, depression, ischemic cardiomyopathy, coronary artery disease, hypertension, hyperlipidemia, severe GERD, overweight, daily tobacco and alcohol use PCP: Unknown Payer: [place] of [place] Reviewed chart, pt discussed in multidisciplinary rounds this morning. According to dietary, patient is indp and active at baseline, currently living in an RV w/family while their home is remodeled. No barriers identified at this time to patient's safe discharge home w/family to assist; close outpatient f/u recommended. CM team will plan to follow closely in case any DC needs or concerns arise JAMIA Gunn Discharge Planning/Care Management CM Discharge Assessment Start: 02/20/22 11:38 Freq: Status: Active Protocol: Document 02/20/22 11:38 JESSEE (Rec: 02/20/22 11:46 [id number]) Discharge Planning Assessment Assigned Nursing Unit Manager JAMIA Ladd DPOA/Assigned Designee Name Dena Diaz, spouse Contact Information [phone] Advance Directives? No History Provided By Patient,Medical Record Prior Living Arrangements House Household Members significant other,children Type of transporation used prior to Drives own vehicle admit Independent with ADL's Yes Is patient alert and oriented? Yes Barriers to Discharge No Comment Home w/family upon discharge Discharge Plan Home Transportation Arrangement Family Referrals Initiated None needed
--- NOTE | 2022-02-20 15:57 | P.DS_ITS ---
History of Present Illness History of Present Illness Date Patient Seen: 02/20/22 Chief complaint: stroke symptoms 30 mins Narrative: From HPI: Daljit Diaz is a 51-year-old male with a history of prior MS stent x1, paroxysmal AFib on Eliquis, type 2 diabetes on Victoza/Jardiance, depression, ischemic cardiomyopathy, coronary artery disease, hypertension, hyperlipidemia, severe GERD, overweight, daily tobacco and alcohol use who presented to the ED for reported stroke-like symptoms this morning.? His last known normal was 1230am when he went to bed awoke at about 2:00 a.m. with confusion, slurring of words, word-finding difficulty, and weakness. Patients reported possible left side facial droop and right-sided extremity weakness.? Symptoms lasted about 30 minutes and had resolved at home prior to EMS arrival to their home, and were not present on admittance to the ED.?He had been diverted to [place] by [facility] as [facility] was on diversion. Upon arrival he did not meet code stroke criteria.? He denies any recent trauma, injury, headache, blurred vision, chest pain, shortness of breath, uri illness or symptoms, difficulty with balance or coordination, difficulty swallowing, abdominal pain, nausea, vomiting, diarrhea, fever, body aches, chills, urinary symptoms, bowel symptoms, or history of stroke or TIA.? Patient does report that he has a significant history for severe GERD and frequently suffers from a type of burning radiating down epigastric pain midsternal, that frequently wakes him at night.? He has been offered surgical intervention for esophageal sphincter dysfunction, he continues to manage with medication but notes that he has missed his medication frequently in the past 3 weeks he also had a large meal approximately 8:00 p.m. last night of collar greens with hot sauce, ribs and forgot to take his medication prior to eating.? The patient smokes a ppd x 13 years and drinks 3-4 coores beers daily.? The patient had been on Plavix and Eliquis, his gluten settling tender stopped the Plavix approximately 2 months ago and doubled his losartan dose from 50 mg to 100 mg daily. Patient states that his atrial fibrillation presents with symptomatic lightheadedness slurred speech confusion, and weakness frequently.? He had a stress test approximately 3 weeks ago, he notes his last echo was over a year ago.? His gluten settling tender is at [facility]. Patient's vital signs have remained stable upon admit temp 97.5?, BP 117/79, HR 82, R 18, O2 saturation 98% on room air.? Patient's CBC is predominantly unremarkable, CMP demonstrates a sodium 134, creatinine 1.28 glucose 164, PT is 15.1 but INR is normal at 1.3, initial troponin is negative, NIH score:0 head neck CTA was negative for any acute processes, brain CT negative for any acute intracranial processes.? EKG I personally reviewed normal sinus rhythm with a rate of 84, nonspecific ST/T-wave abnormalities, prolonged QT 412.? No comparison labs, diagnostics or EKG available in chart.? Patient is resting comfortably in the room, although he continues to have GERD symptoms of midster nal radiating burning pain.? Patient remains asymptomatic at this time. Patient admitted for TIA stroke rule out. Discharge Providers Provider Date of admission: 02/20/22 04:15 Discharge Date: 02/20/22 Consults: 02/20/22 04:41 Consult to Dietitian, Adult Routine Comment: Reason For Exam: BMI 29, dm Consult to Occupational Therapy Evaluate & Treat Comment: TIA Physician Instructions: Evaluate and treat Consult to Physical Therapy Evaluate & Treat Comment: TIA Physician Instructions: Evaluate and Treat 02/20/22 04:57 Consult to Thread Spooler Routine Comment: Discharge provider: Alise Blake MD Summary Hospital Course Discharge Diagnosis: TIA -negative MRI brain and negative echo Significant cardiac history with a stent and recent positive stress test - medical management recommended Near syncopal episode -most likely orthostatic -if any further episodes, need cardiac evaluation -consider Holter monitor Other chronic medical conditions Type 2 diabetes mellitus Benign essential hypertension Obstructive sleep apnea Hospital Course: Patient admitted for further evaluation of possible stroke-like symptoms, completely resolved by the time he was admitted. Patient denies any cardiac symptoms during my evaluation. Given significant cardiac history, recent stress test positive, I strongly recommended patient and his to get a quick cardiology follow up appointment. Patient's at bedside confirms a cardiology appointment on Wednesday. Any further episodes of dizziness, chest pain, palpitations, near syncopal events, need immediate evaluation. Patient was admitted under telemetry, no further neurological events during the hospitalization. MRI brain negative. Echocardiogram did not show any wall motion abnormalities. EF 60%. Troponin negative. Outpatient follow up recommended. I suggested adding antiplatelet therapy given significant symptoms along with the anticoagulation. Time Spent with Patient Time spent: Greater than 30 minutes Exam Vital Signs (past 8 hours): - 02/20/22 12:00 02/20/22 15:27 Temperature 98 F 97.6 F Pulse Rate 86 82 Respiratory Rate 18 18 Blood Pressure 113/70 120/55 L Pulse Oximetry 99 100 Oxygen Flow Rate 0 0 Oxygen Delivery Method Room Air Oxygen Flow Rate 0 Narrative Exam Narrative: Within normal limits. Objective Labs Result Diagrams: 02/20/22 03:19 02/20/22 03:19 Labs: Laboratory Results - last 24 hr 02/20/22 02/20/22 02/20/22 03:19 03:19 03:19 WBC 8.1 RBC 4.36 L Hgb 13.9 Hct 40.7 L MCV 93.1 MCH 31.7 MCHC 34.1 RDW 14.0 Plt Count 237 Neut % (Auto) 58.8 Lymph % (Auto) 29.2 [place] % (Auto) 8.0 Eos % (Auto) 3.2 Baso % (Auto) 0.8 Neut # (Auto) 4800 Lymph # (Auto) 2400 [place] # (Auto) 600 Eos # (Auto) 300 Baso # (Auto) 100 PT 15.1 H INR 1.3 Sodium 134 L Potassium 3.8 Chloride 101 Carbon Dioxide 22 BUN 17 Creatinine 1.28 H Estimated GFR > 60 BUN/Creatinine Ratio 13.3 Glucose 164 H Hemoglobin A1c Calcium 9.4 Magnesium Total Bilirubin 0.4 AST 26 ALT 23 Alkaline Phosphatase 59 Total Creatine Kinase 152 CK-MB (CK-2) 1.30 CK-MB (CK-2) Rel Index 0.9 L Troponin I < 0.012 NT-Pro-B Natriuret Pep Total Protein 7.5 Albumin 3.9 Globulin 3.6 Albumin/Globulin Ratio 1.1 Triglycerides Cholesterol LDL Cholesterol, Calc HDL Cholesterol SARS-CoV-2 (PCR) 02/20/22 02/20/22 02/20/22 03:19 03:19 03:19 WBC RBC Hgb Hct MCV MCH MCHC RDW Plt Count Neut % (Auto) Lymph % (Auto) [place] % (Auto) Eos % (Auto) Baso % (Auto) Neut # (Auto) Lymph # (Auto) [place] # (Auto) Eos # (Auto) Baso # (Auto) PT INR Sodium Potassium Chloride Carbon Dioxide BUN Creatinine Estimated GFR BUN/Creatinine Ratio Glucose Hemoglobin A1c Calcium Magnesium 1.7 Total Bilirubin AST ALT Alkaline Phosphatase Total Creatine Kinase CK-MB (CK-2) CK-MB (CK-2) Rel Index Troponin I NT-Pro-B Natriuret Pep 20 Total Protein Albumin Globulin Albumin/Globulin Ratio Triglycerides 159 H Cholesterol 134 L LDL Cholesterol, Calc 74 HDL Cholesterol 28 L SARS-CoV-2 (PCR) 02/20/22 02/20/22 03:19 03:45 WBC RBC Hgb Hct MCV MCH MCHC RDW Plt Count Neut % (Auto) Lymph % (Auto) [place] % (Auto) Eos % (Auto) Baso % (Auto) Neut # (Auto) Lymph # (Auto) [place] # (Auto) Eos # (Auto) Baso # (Auto) PT INR Sodium Potassium Chloride Carbon Dioxide BUN Creatinine Estimated GFR BUN/Creatinine Ratio Glucose Hemoglobin A1c 6.6 H Calcium Magnesium Total Bilirubin AST ALT Alkaline Phosphatase Total Creatine Kinase CK-MB (CK-2) CK-MB (CK-2) Rel Index Troponin I NT-Pro-B Natriuret Pep Total Protein Albumin Globulin Albumin/Globulin Ratio Triglycerides Cholesterol LDL Cholesterol, Calc HDL Cholesterol SARS-CoV-2 (PCR) Negative [facility] Medical History (Updated 02/20/22 @ 06:06 by SUSANA Gayle) Alcohol use CAD (coronary artery disease), cabazon coronary artery Chest pain due to GERD Essential hypertension 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 coronary artery disease Hypertriglyceridemia Ischemic cardiomyopathy Paroxysmal A-fib Tobacco abuse Type 2 diabetes mellitus Surgical History (Updated 02/20/22 @ 06:06 by SUSANA Gayle) History of coronary artery stent placement Family History Mother Seizure disorder Cancer Father Hypertension Diabetes mellitus Congestive heart failure Social History household members: significant other and children Smoking Status: Current every day smoker alcohol intake: current Discharge Plan Discharge Plan Patient Disposition: Home Discharge orders & Medications Prescriptions: New aspirin 81 mg capsule 81 mg PO DAILY Qty: 30 0RF Continued losartan 50 mg Tablet 100 mg PO DAILY atorvastatin 80 mg Tablet 80 mg PO DAILY carvedilol 25 mg Tablet 12.5 mg PO BID Rx Instructions: must administer with a meal/food trazodone 50 mg Tablet 50 mg PO BID spironolactone 25 mg Tablet 12.5 mg PO DAILY nitroglycerin 0.4 mg Tablet, Sublingual 0.4 mg SUBLINGUAL Q5-15M PRN (Reason: Chest Pain) Rx Instructions: do not exceed 3 doses per episode fluticasone propionate 50 mcg/actuation [place],Suspension 1 spray INTRANASAL DAILY PRN (Reason: Allergy Symptoms) Rx Instructions: administer into each nostril escitalopram oxalate 10 mg Tablet 10 mg PO DAILY ezetimibe 10 mg Tablet 10 mg PO DAILY omeprazole 20 mg Tablet,Delayed Release (Dr/Ec) 20 mg PO DAILY Victoza 2-[place] 0.6 mg/0.1 mL (18 mg/3 mL) Pen Injector 1.8 mg SUBCUT DAILY Label Comments: now up to 1.8 mg/daily Rx Instructions: inject 0.6mg subcutaneously once daily x 7 days; then 1.2mg daily, not to exceed 1.8mg/day Eliquis 5 mg Tablet 5 mg PO BID empagliflozin 25 mg Tablet 25 mg PO DAILY Medication counseling provided by Pharmacist: No Visit Report/Discharge Packet Instructions: Eating a Diet Low in Saturated Fat, Trans Fat, and Cholesterol, DI for Transient Ischemic Attack, DI for Chest Pain, How to Quit Tobacco Products Discharge Data Attending Provider: Modesta Ojeda VTE Deep Vein Thrombosis/Pulmonary Embolism Present on Admission: No
--- NOTE | 2022-02-20 16:47 | PC.NURSE ---
Discharge: Pt feels ready to d/c to home. Seen by MD and given d/c instructions. Pt has no c/p at time of d/c. NIH is 0. Pt is tolerating diet w/out problems. Pt is voiding w/out diff. Reviewed d/c packet and understood. Rx has been esent. Spouse present at time of teaching. She has been staying with him. Pt and spouse d/c to home via auto with friends. Pt voiced no concerns at time of d/c.
== END 2022-02-20 16:50 | disposition home or self-care (01) ==
LOC: ED 04:04 → AC 04:16
PROVIDERS: Admitting Provider Nurse Practitioner Family; Emergency Provider Emergency Medicine; Referring Provider Emergency Medicine; Visit Provider Nurse Practitioner Family
DX: G45.9 Transient cerebral ischemic attack, unspecified (principal); R29.700 NIHSS score 0; R55 Syncope and collapse; I25.2 Old myocardial infarction; E11.9 Type 2 diabetes mellitus without complications; I10 Essential (primary) hypertension; F32.A Depression, unspecified; I25.10 Atherosclerotic heart disease of native coronary artery without angina pectoris; I48.0 Paroxysmal atrial fibrillation; N17.9 Acute kidney failure, unspecified; K21.9 Gastro-esophageal reflux disease without esophagitis; G47.33 Obstructive sleep apnea (adult) (pediatric); E66.3 Overweight; Z68.28 Body mass index [BMI] 28.0-28.9, adult; Z79.01 Long term (current) use of anticoagulants; F17.210 Nicotine dependence, cigarettes, uncomplicated; Z20.822 Contact with and (suspected) exposure to COVID-19
CPT/HCPCS: 70450; 70496; 70498; 70551; 80053; 80061; 82550; 82553; 82962; 83036; 83735; 83880; 84484; 85025; 85610; 87635; 93005; 93010; 93306; 96374; 97161; 99285; C9803; G0378; C9113; J1815; Q9967